=== PATIENT | female | born 1975 | race American Indian/Alaskan Native ===

== ENCOUNTER 2020-12-11 06:45 | Day surgery (SDC) | payer BC ==
[2020-12-11] MEDS ORDERED: FERRIC CARBOXYMALTOSE 750 MG in SODIUM CHLORIDE 250 ML IVPB ONE (12:00)
[2020-12-11 18:11] VITALS: TEMP 97.8
[2020-12-11 18:44] VITALS: BP 145/96; PULSE 89
== END 2020-12-11 18:45 | disposition home or self-care (01) ==
LOC: JONCNONCHE 06:45
PROVIDERS: ATTEND Nurse Practitioner Family
PROC: 3E033GC Introduction of Other Therapeutic Substance into Peripheral Vein, Percutaneous Approach (ICD-10-PCS; principal; 2020-12-11)
DX: D50.9 Iron deficiency anemia, unspecified (principal)
CPT/HCPCS: 96365; J1439

== ENCOUNTER 2020-12-18 06:49 | Day surgery (SDC) | payer BC ==
[2020-12-18] MEDS ORDERED: FERRIC CARBOXYMALTOSE 750 MG in SODIUM CHLORIDE 250 ML IVPB ONE (17:00)
[2020-12-18 17:30] VITALS: TEMP 98.4
[2020-12-18 18:37] VITALS: BP 142/85; PULSE 79
== END 2020-12-18 18:54 | disposition home or self-care (01) ==
LOC: JONCNONCHE 06:49
PROVIDERS: ATTEND Nurse Practitioner Family
PROC: 3E033GC Introduction of Other Therapeutic Substance into Peripheral Vein, Percutaneous Approach (ICD-10-PCS; principal; 2020-12-18)
DX: D50.9 Iron deficiency anemia, unspecified (principal)
CPT/HCPCS: 96365; J1439